=== PATIENT | male | born 2000 | race Caucasian/White ===

== ENCOUNTER 2023-09-23 17:51 | Emergency (ER) | payer BC, SELFPAY ==
[2023-09-23 18:02] VITALS: BP 145/72; PULSE 93; RESP 16; TEMP 36.8; O2SAT 95; BMI 30.7
[2023-09-23 18:36] LABS: Basophils Percent Auto 0.3 % (0.0-3.0); Eosinophils Percent Auto 1.6 % (0.0-7.0); Hematocrit 43.8 % (37.0-53.0); Hemoglobin* 14.7 gm/dL (13.5-17.5); Immature Granulocytes Pct Auto 0.2 %; Lymphocytes Percent Auto 15.7 % (20-44); Mean Corpuscular HGB Conc 34 gm/dL (32-36); Mean Corpuscular Hemoglobin 30 pg (26-34); Mean Corpuscular Volume 90 fL (80-100); Monocytes Percent Auto 6.2 % (0.0-11.0); Platelet Count* 302 K/uL (140-440); Red Blood Count 4.88 m/uL (4.30-5.90); White Blood Count* 11.97 K/uL (4.50-11.00)
[2023-09-23 18:40] LABS: Slide Review Reflex No
--- NOTE | 2023-09-23 18:47 | ED.PSYCH ---
HPI - Psych General Date Seen: 09/23/23 <Abdirahman Sibley - Last Filed: 09/23/23 21:30> Chief Complaint: Psychiatric Problem/Disorder <Abdirahman Sibley DO - Last Filed: 09/23/23 21:30> Stated Complaint: mental health <Abdirahman Silbey DO - Last Filed: 09/23/23 21:30> Time Seen by Provider: 09/23/23 18:01 <Abdirahman Sibley DO - Last Filed: 09/23/23 21:30> Source: patient <Abdirahman Sibley DO - Last Filed: 09/23/23 21:30> Mode of arrival: ambulatory <Abdirahman Sibley - Last Filed: 09/23/23 21:30> Limitations: no limitations <Abdirahman Sibley - Last Filed: 09/23/23 21:30> History of Present Illness HPI Narrative: Patient is a 22-year-old male presenting to emergency department for mental health evaluation. States he has been do with depression for several years now but feels like it was worse today. He was with his mother who was concerned about him hurting himself so police were called. Patient states he does feel more depressed than normal today. Is prescribed citalopram by his primary care provider but has not seen a psychiatrist or therapist. Denies suicidal or homicidal thoughts. States he does not think he will hurt himself if he goes home. Has no plan on hurting himself. Denies any hallucinations. No other concerns at this time <Abdirahman Sibley DO - Last Filed: 09/23/23 21:30> Related Data Home Medications: Home Medications Medication Instructions Recorded Confirmed hydroxyzine pamoate 50 mg capsule 50 mg PO BID PRN anxiety 10/12/23 10/12/23 Previous Rx's Medication Instructions Recorded sertraline 100 mg tablet 100 mg PO DAILY depressive 10/12/23 disorder #90 tabs trazodone 50 mg tablet 50 mg PO QPM insomnia #90 tabs 10/12/23 <Abdirahman Sibley DO - Last Filed: 09/23/23 21:30> Allergies/Adverse Reactions: Allergies Allergy/AdvReac Type Severity Reaction Status Date / Time azithromycin [From Zithromax] Allergy Verified 10/12/23 09:16 <Abdirahman Sibley DO - Last Filed: 09/23/23 21:30> Review of Systems Status of ROS: Reports: 10 or more systems reviewed and unremarkable except as noted in History and below <Abdirahman Sibley DO - Last Filed: 09/23/23 21:30> [facility] Medical History: Medical History (Updated 10/15/23 @ 11:42 by Amy Archer APRN, CONDITIONING YARD SUPERVISOR) Nicotine dependence ?F17.200 - Nicotine dependence, unspecified, uncomplicated (ICD-10) <Abdirahman Sibley DO - Last Filed: 09/23/23 21:30> Surgical History: Surgical History History of orthopedic surgery ?Z98.890 - Other specified postprocedural states (ICD-10) <Abdirahman Sibley DO - Last Filed: 09/23/23 21:30> Family History: Family History Maternal Grandmother Diabetes Sister No problems noted. Uncle Diabetes <Abdirahman Sibley DO - Last Filed: 09/23/23 21:30> Social History: Social History Narrative: Single. 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 No children. Formal exercising. Current everyday smoker. No alcohol. No illicit drug use. Smoking Status: Current every day smoker What tobacco products do you use: cigarettes Second hand tobacco smoke exposure: Yes How often do you have a drink containing alcohol: 4 or more times a week How many standard drinks containing alcohol do you have on a typical day: 5 or 6 How often do you have six or more drinks on one occasion: Daily or almost daily AUDIT-C Alcohol total score: 10 Non-prescribed substance use: marijuana (any form) Little interest or pleasure in doing things: several days Feeling down, depressed, or hopeless: not at all <Abdirahman Sibley DO - Last Filed: 09/23/23 21:30> Exam Narrative: Exam Narrative: Const: Well-nourished, Well-developed, in mild distress Eyes: PERRL, no conjunctival injection, and symmetrical lids HENT: Atraumatic external nose and ears. Moist mucous membranes. Neck: Symmetric, trachea midline, No thyromegaly. CVS: RRR, No murmurs or gallops. Peripheral pulses 2+ and equal in all extremities RESP: Unlabored respiratory effort. Clear to auscultation bilaterally. GI: Nontender/Nondistended, No rebound or guarding. MSK:Extremities w/o deformity, Normal Active ROM Skin: Warm, Dry. No rashes or lesions. Neuro: Normal Muscle tone, No focal neurological deficits. Psych: Awake, Alert, & Oriented x3. Appropriate mood and affect. <Abdirahman Sibley DO - Last Filed: 09/23/23 21:30> Const: Vital Signs, click to edit/add: Vital Signs - 24 hr 09/23/23 18:02 Temperature 98.2 F Pulse Rate [Pulse Oximeter] 93 Respiratory Rate 16 Blood Pressure [Ri ght Upper Arm] 145/72 H Pulse Oximetry 95 Oxygen Delivery Me thod Room Air <Abdirahman Sibley DO - Last Filed: 09/23/23 21:30> Vital Signs, click to edit/add: Vital Signs - 24 hr 09/23/23 18:02 Temperature 98.2 F Pulse Rate [Pulse Oximeter] 93 Respiratory Rate 16 Blood Pressure [Ri ght Upper Arm] 145/72 H Pulse Oximetry 95 Oxygen Delivery Me thod Room Air <Ricki Marcelo MD - Last Filed: 10/23/23 14:18> Documenting provider has reviewed patient's vital signs: yes <Ricki Marcelo MD - Last Filed: 10/23/23 14:18> Course Vital Signs Vital signs: Initial Vital Signs Temperature 98.2 F 09/23/23 18:02 Temperature Source Temporal Artery Scan 09/23/23 18:02 Pulse Rate 93 09/23/23 18:02 Respiratory Rate 16 09/23/23 18:02 Blood Pressure 145/72 H 09/23/23 18:02 Blood Pressure Mean 96 09/23/23 18:02 Pulse Oximetry 95 09/23/23 18:02 Oxygen Delivery Method Room Air 09/23/23 18:02 Vital Signs Temperature 98.2 F 09/23/23 18:02 Pulse Rate 93 09/23/23 18:02 Respiratory Rate 16 09/23/23 18:02 Blood Pressure 145/72 H 09/23/23 18:02 Pulse Oximetry 95 09/23/23 18:02 Oxygen Delivery Method Room Air 09/23/23 18:02 Temperature 98.4 F 09/24/23 09:30 Pulse Rate 56 L 09/24/23 09:30 Respiratory Rate 24 09/24/23 09:30 Blood Pressure 136/82 09/24/23 09:30 Pulse Oximetry 96 09/24/23 09:30 Oxygen Delivery Method Room Air 09/24/23 09:30 <Abdirahman Sibley DO - Last Filed: 09/23/23 21:30> Initial Vital Signs Temperature 98.2 F 09/23/23 18:02 Temperature Source Temporal Artery Scan 09/23/23 18:02 Pulse Rate 93 09/23/23 18:02 Respiratory Rate 16 09/23/23 18:02 Blood Pressure 145/72 H 09/23/23 18:02 Blood Pressure Mean 96 09/23/23 18:02 Pulse Oximetry 95 09/23/23 18:02 Oxygen Delivery Method Room Air 09/23/23 18:02 Vital Signs Temperature 98.2 F 09/23/23 18:02 Pulse Rate 93 09/23/23 18:02 Respiratory Rate 16 09/23/23 18:02 Blood Pressure 145/72 H 09/23/23 18:02 Pulse Oximetry 95 09/23/23 18:02 Oxygen Delivery Method Room Air 09/23/23 18:02 Temperature 98.4 F 09/24/23 09:30 Pulse Rate 56 L 09/24/23 09:30 Respiratory Rate 24 09/24/23 09:30 Blood Pressure 136/82 09/24/23 09:30 Pulse Oximetry 96 09/24/23 09:30 Oxygen Delivery Method Room Air 09/24/23 09:30 <Ricki Marcelo MD - Last Filed: 10/23/23 14:18> MDM - Psych MDM Narrative Medical decision making narrative: Patient is 22-year-old male presenting for mental health evaluation. Patient denies suicidal homicidal thoughts. Will have be assessed by DEC. I spoke to the patient's mother when she arrived. She states she is concerned he will hurt himself. She states he told the police that when he comes emergency department he will tell us what ever we 1 here so he can be discharged home and then will kill himself. Mental health lab work was ordered. It returned showing no concerning abnormalities. Urine drug screen does show marijuana in his system. He does have alcohol in his system but he is under the legal limit and does not appear to be currently intoxicated. See my colleague's note for final disposition <Abdirahman Sibley DO - Last Filed: 09/23/23 21:30> Patient is 22-year-old male presenting for mental health evaluation. Patient denies suicidal homicidal thoughts. Will have be assessed by DEC. I spoke to the patient's mother when she arrived. She states she is concerned he will hurt himself. She states he told the police that when he comes emergency department he will tell us what ever we 1 here so he can be discharged home and then will kill himself. Mental health lab work was ordered. It returned showing no concerning abnormalities. Urine drug screen does show marijuana in his system. He does have alcohol in his system but he is under the legal limit and does not appear to be currently intoxicated. See my colleague's note for final disposition ANGEL -- inherited Mr. Palumbo as a patient at change of shift pending assessment by DEC. During this interview he became increasingly agitated threatening to leave. With information that he has been making threats to kill himself, I did place a hold. Following the interview I did speak again with the DEC teletray operator who was also recommending a hold and psychiatric hospitalization. In addition to threatening to kill himself, Mr. Palumbo was observed to take unspecified pills, suspected to that end. Will continue to watch for evidence of ingestion/med effect. I did discuss this hold and reasons for it with Mr. Palumbo. He was irritated and resigned to just going to sleep. There were no further events until morning sign out pending psychiatric hospitalization. <Ricki Marcelo MD - Last Filed: 10/23/23 14:18> Lab Data Labs: Lab Results 09/23/23 09/23/23 09/23/23 Range/Units 18:30 18:35 19:31 WBC 11.97 H (4.50-11.00) K/uL RBC 4.88 (4.30-5.90) m/uL Hgb 14.7 (13.5-17.5) gm/dL Hct 43.8 (37.0-53.0) % MCV 90 (80-100) fL MCH 30 (26-34) pg MCHC 34 (32-36) gm/dL RDW Coeff of Shy 14.0 (11.5-15.5) % Plt Count 302 (140-440) K/uL Neut % (Auto) 76.0 H (42.0-72.0) % Lymph % (Auto) 15.7 L (20-44) % [place] % (Auto) 6.2 (0.0-11.0) % Eos % (Auto) 1.6 (0.0-7.0) % Baso % (Auto) 0.3 (0.0-3.0) % Neut # (Auto) 9.10 H (1.7-7.0) K/uL Lymph # (Auto) 1.90 (0.90-2.90) K/uL [place] # (Auto) 0.70 (0.00-0.90) K/UL Eos # (Auto) 0.20 (0.00-0.50) K/uL Baso # (Auto) 0.00 (0.00-0.30) K/uL Abs Immat Gran (auto) 0.00 (0.00-0.30) K/uL Imm/Tot Granulo (auto) 0.2 % TSH 0.156 L (0.270-4.20) uIU/mL Urine Color Yellow (Yellow) Urine Appearance Clear (Clear) Urine pH 5.5 (5.0-8.5) Ur Specific [place] >= 1.030 (1.000-1.030) Urine Protein 1+ A (Negative) Urine Glucose (UA) Negative (Negative) Urine Ketones 1+ A (Negative) Urine Blood Negative (Negative) Urine Nitrite Negative (Negative) Urine Bilirubin Negative (Negative) Urine Urobilinogen 0.2 (0.2-1.0) Ur Leukocyte Esterase Negative (Negative) Urine RBC 0-2 (0-2) Urine WBC 2-5 (0-5) Ur Squamous Epith Cells Moderate A (None-Few) Urine Bacteria None (None) Urine Mucus Many A (None) Salicylates < 1.0 L (1.0-10) mg/dL Urine Opiates Screen Negative (Negative) Ur Oxycodone Screen Negative (Negative) Urine Methadone Screen Negative (Negative) Ur Propoxyphene Screen Negative (Negative) Acetaminophen < 10.0 L (10.0-30.0) ug/mL Ur Barbiturates Screen Negative (Negative) U Tricyclic Antidepress Negative (Negative) Ur Phencyclidine Scrn Negative (Negative) Ur Amphetamines Screen Negative (Negative) U Methamphetamines Scrn Negative (Negative) U Benzodiazepines Scrn Negative (Negative) Urine Cocaine Screen Negative (Negative) U Marijuana (THC) Screen POSITIVE A (Negative) Ur Drug Screen Comment See Note Ethyl Alcohol 0.07 H (0.01-0.03) % SARS-CoV-2 (PCR) Negative SARS-CoV-2 (Negative) Influenza Type A (PCR) Negative PCR FLU A (Negative) Influenza Type B (PCR) Negative PCR FLU B (Negative) RSV (PCR) Negative PCR RSV (Negative) <Abdirahman Sibley, DO - Last Filed: 09/23/23 21:30> Lab Results 09/23/23 09/23/23 09/23/23 Range/Units 18:30 18:35 19:31 WBC 11.97 H (4.50-11.00) K/uL RBC 4.88 (4.30-5.90) m/uL Hgb 14.7 (13.5-17.5) gm/dL Hct 43.8 (37.0-53.0) % MCV 90 (80-100) fL MCH 30 (26-34) pg MCHC 34 (32-36) gm/dL RDW Coeff of Shy 14.0 (11.5-15.5) % Plt Count 302 (140-440) K/uL Neut % (Auto) 76.0 H (42.0-72.0) % Lymph % (Auto) 15.7 L (20-44) % [place] % (Auto) 6.2 (0.0-11.0) % Eos % (Auto) 1.6 (0.0-7.0) % Baso % (Auto) 0.3 (0.0-3.0) % Neut # (Auto) 9.10 H (1.7-7.0) K/uL Lymph # (Auto) 1.90 (0.90-2.90) K/uL [place] # (Auto) 0.70 (0.00-0.90) K/UL Eos # (Auto) 0.20 (0.00-0.50) K/uL Baso # (Auto) 0.00 (0.00-0.30) K/uL Abs Immat Gran (auto) 0.00 (0.00-0.30) K/uL Imm/Tot Granulo (auto) 0.2 % TSH 0.156 L (0.270-4.20) uIU/mL Urine Color Yellow (Yellow) Urine Appearance Clear (Clear) Urine pH 5.5 (5.0-8.5) Ur Specific [place] >= 1.030 (1.000-1.030) Urine Protein 1+ A (Negative) Urine Glucose (UA) Negative (Negative) Urine Ketones 1+ A (Negative) Urine Blood Negative (Negative) Urine Nitrite Negative (Negative) Urine Bilirubin Negative (Negative) Urine Urobilinogen 0.2 (0.2-1.0) Ur Leukocyte Esterase Negative (Negative) Urine RBC 0-2 (0-2) Urine WBC 2-5 (0-5) Ur Squamous Epith Cells Moderate A (None-Few) Urine Bacteria None (None) Urine Mucus Many A (None) Salicylates < 1.0 L (1.0-10) mg/dL Urine Opiates Screen Negative (Negative) Ur Oxycodone Screen Negative (Negative) Urine Methadone Screen Negative (Negative) Ur Propoxyphene Screen Negative (Negative) Acetaminophen < 10.0 L (10.0-30.0) ug/mL Ur Barbiturates Screen Negative (Negative) U Tricyclic Antidepress Negative (Negative) Ur Phencyclidine Scrn Negative (Negative) Ur Amphetamines Screen Negative (Negative) U Methamphetamines Scrn Negative (Negative) U Benzodiazepines Scrn Negative (Negative) Urine Cocaine Screen Negative (Negative) U Marijuana (THC) Screen POSITIVE A (Negative) Ur Drug Screen Comment See Note Ethyl Alcohol 0.07 H (0.01-0.03) % SARS-CoV-2 (PCR) Negative SARS-CoV-2 (Negative) Influenza Type A (PCR) Negative PCR FLU A (Negative) Influenza Type B (PCR) Negative PCR FLU B (Negative) RSV (PCR) Negative PCR RSV (Negative) <Ricki Marcelo MD - Last Filed: 10/23/23 14:18> Discharge Plan Discharge Clinical Impression: Depression <Abdirahman Sibley DO - Last Filed: 09/23/23 21:30> Patient Disposition: Home, Self-Care <Abdirahman Sibley DO - Last Filed: 09/23/23 21:30> Condition: Stable <Abdirahman Sibley DO - Last Filed: 09/23/23 21:30> Instructions: Depression (ED) <Abdirahman Sibley DO - Last Filed: 09/23/23 21:30> Additional Instructions: Follow-up with all appointments scheduled by SEP. Return to the emergency department for new or worsening symptoms <Abdirahman Sibley DO - Last Filed: 09/23/23 21:30> Prescriptions: No Action hydroxyzine pamoate 50 mg capsule 50 mg PO BID PRN (Reason: anxiety) sertraline 100 mg tablet 100 mg PO DAILY Qty: 90 0RF trazodone 50 mg tablet 50 mg PO QPM Qty: 90 0RF <Abdirahman Sibley DO - Last Filed: 09/23/23 21:30> Follow Up/Referrals: Amy Archer, IDENTIFICATION OFFICER, CONDITIONING YARD SUPERVISOR [Primary Care Provider] - <Abdirahman Sibley DO - Last Filed: 09/23/23 21:30>
[2023-09-23 18:53] LABS: Ethanol* 0.07 % (0.01-0.03)
[2023-09-23 19:20] LABS: PCR FLU A Negative PCR FLU A (Negative); PCR FLU B Negative PCR FLU B (Negative); PCR RSV Negative PCR RSV (Negative)
[2023-09-23 19:27] LABS: SARS PCR* Negative SARS-CoV-2 (Negative)
[2023-09-23 19:34] LABS: Thyroid Stimulating Hormone* 0.156 uIU/mL (0.270-4.20)
[2023-09-23 20:01] LABS: Appearance Urine Clear (Clear); Bilirubin Urine Negative (Negative); Blood Urine Negative (Negative); Color Urine Yellow (Yellow); Glucose Urine Negative (Negative); Ketones Urine 1+ (Negative); Leukocyte Esterase Urine Negative (Negative); Nitrite Urine Negative (Negative); Protein Urine 1+ (Negative); Specific Gravity Urine >= 1.030 (1.000-1.030); Urobilinogen Urine 0.2 (0.2-1.0); pH Urine 5.5 (5.0-8.5)
[2023-09-23 20:08] LABS: Amphetamine Screen Urine Negative (Negative); Barbiturate Screen Urine Negative (Negative); Benzodiazepines Screen Urine Negative (Negative); Cannabinoid Screen Urine POSITIVE (Negative); Cocaine Screen Urine Negative (Negative); Methadone Screen Urine Negative (Negative); Methamphetamines Screen Urine Negative (Negative); Opiate Screen Urine Negative (Negative); Oxycodone Screen Urine Negative (Negative); Phencyclidine Screen Urine Negative (Negative); Tricyclic Antidepressant Urine Negative (Negative)
[2023-09-23 20:10] LABS: Mucus Urine Many; RBC Urine 0-2 (0-2); Squamous Epithelial Cell Urine Moderate (None-Few)
--- NOTE | 2023-09-23 22:15 | ED.NURSE ---
During DEC assessment patient stormed out of the room and locked himself in the bathroom. This nurse proceeded to explain to patient that he needed to finish the DEC assessment. Pt stated to this nurse puta, get out of my room. Pt left the bathroom and then came back to his room and finished the DEC assessment and then DEC environmental property assessor spoke to mom in a separate room.
--- NOTE | 2023-09-23 23:06 | ED.NURSE ---
Pt given paperwork detailing 72 hour hold. Pt read rights. Pt verbalizes understanding. Pt crying and states, I'm not like one of those crazy people, I don't want to just waste away here! Insurance Account Representative listens to pt and states that other nurses are currently calling facilities to find mental health bed placement. Insurance Account Representative brings paper scrubs in to pt to change into and asks pt to put belongings in belongings bag to be inventoried by security. Pt states, I will just comply and change. Pt's mother at bedside.
--- NOTE | 2023-09-23 23:17 | ED.NURSE ---
Pt changes into scrubs and gives principal technical writer bag of belongings. Wallet and phone taken by pt's mother, with patient's permission. Other belongings given to security for inventory and locked in med room.
--- NOTE | 2023-09-23 23:45 | ED.NURSE ---
Pt moved into Room 2 (a safe room). Pt provided with water and warm blankets. Pt denies further needs at this time.
[2023-09-23 23:46] VITALS: BP 138/88; PULSE 66; RESP 14; TEMP 36.8; O2SAT 96
--- NOTE | 2023-09-23 23:48 | ED.NURSE ---
Pt's mother, Nathalie Sharif ([phone]), leaving for the night. Requests updates, okayed with patient.
--- NOTE | 2023-09-24 03:48 | PC.NURSE ---
patient visualized on camera, 1:1 staff monitor. RR even and unlabored, sleeping in bed.
[2023-09-24 09:30] VITALS: BP 136/82; PULSE 56; RESP 24; TEMP 36.9; O2SAT 96
[2023-09-24 12:19] LABS: Acetaminophen* < 10.0 ug/mL (10.0-30.0)
[2023-09-24 12:34] LABS: Salicylate* < 1.0 mg/dL (1.0-10)
--- NOTE | 2023-09-24 12:48 | ED.NURSE ---
Patient was accepted to [facility]. Mother was notified and drove in to see patient and also brought in his wallet and call phone which were packed with his personal belongings. Report was given to in-patient RN.
== END 2023-09-24 11:55 | disposition home or self-care (01) ==
PROVIDERS: Emergency Provider Student in an Organized Health Care Education/Training Program; PCP Nurse Practitioner Family
DX: F32.A Depression, unspecified (principal)
CPT/HCPCS: 36415; 80143; 80179; 80306; 81003; 81015; 82077; 84443; 85025; 87631; 93005; 95992; 99284

== ENCOUNTER 2023-09-24 11:40 | Outpatient (CLI) | payer BC, SELFPAY | END 2023-09-24 11:41 | disposition home or self-care (01) | LOC: AMB 10-05 12:09 | PROVIDERS: PCP Nurse Practitioner Family; Visit Provider Student in an Organized Health Care Education/Training Program | DX: R45.851 Suicidal ideations (principal) | CPT/HCPCS: A0425; A0428 ==